=== PATIENT | female | born 1990 | race African-American/Black ===

== ENCOUNTER 2024-01-10 08:58 | Day surgery (SDC) | payer MEDICAID ==
[~2024-01-10] VITALS: Ht 162.6 cm; Wt 92.5 kg
[2024-01-10 10:13] LABS: HCG,QUAL RESULT NEGATIVE (NEGATIVE)
[2024-01-10] MEDS ORDERED: MIDAZOLAM HCL 5 MG/5 ML VIAL ONE (10:28)
[2024-01-10] MEDS ORDERED: DIPHENHYDRAMINE INJ 50 MG/ML VIAL ONE (10:28)
[2024-01-10] MEDS ORDERED: MEPERIDINE 100 MG INJ. 100 MG/ML VIAL ONE (10:28)
[2024-01-10] MEDS ORDERED: SIMETHICONE 40 MG/0.6 ML ML ONE (10:29)
[2024-01-10 13:25] VITALS: O2SAT 99
[2024-01-10 16:49] VITALS: BP_SYST 131; PULSE 97; RESP 17
== END 2024-01-11 11:55 | disposition home or self-care (01) ==
LOC: SDS 08:58 → SMU 09:03 → SDS 01-11 11:55
PROVIDERS: ATTEND Internal Medicine
DX: R14.0 Abdominal distension (gaseous) (principal); R09.A2 Foreign body sensation, throat; K21.9 Gastro-esophageal reflux disease without esophagitis; K29.50 Unspecified chronic gastritis without bleeding; K44.9 Diaphragmatic hernia without obstruction or gangrene; F41.9 Anxiety disorder, unspecified; F32.A Depression, unspecified; Z90.49 Acquired absence of other specified parts of digestive tract; Z79.899 Other long term (current) drug therapy
CPT/HCPCS: 43239; 87081; 84703; 36415; 88305; 88312; 88313; G0378; J1200; J2250; J2175